=== PATIENT | male | born 1950 | race Asian ===

== ENCOUNTER 2019-09-15 05:54 | Day surgery (SDC) | payer MEDICARE ==
[~2019-09-15] VITALS: Ht 180.3 cm; Wt 94.1 kg
[~2019-09-15 05:54] MED LIST: CHOL10003 PO; ENZA40CA PO; LEUP3.75 INJ; LISI-167 PO; LISI1TAB20 PO; MULT-658 PO; SIMV20TA19 PO; zometa INJ
[2019-09-15] MEDS ORDERED: LACTATED RINGERS 1,000 ML IV SCH (06:11)
[2019-09-15 06:17] VITALS: BP 134/89
[2019-09-15] MEDS ORDERED: CHLORHEXIDINE 15 ML UDC MM ONE (06:30)
[2019-09-15 07:17] LABS: INTERNATIONAL NORMALIZED RATIO 0.92 (0.93-1.1); PROTHROMBIN TIME 9.7 Seconds (9.6-11.5)
[2019-09-15] MEDS ORDERED: MIDAZOLAM 1 MG/ML, 2ML ONE (07:45)
[2019-09-15] MEDS ORDERED: ROCURONIUM 10 MG/ML,10ML ONE (07:58)
[2019-09-15] MEDS ORDERED: SUCCINYLCHOLINE 20 MG/ML, 10ML ONE (07:58)
[2019-09-15] MEDS ORDERED: ONDANSETRON 2MG/ML, 2ML ONE (07:58)
[2019-09-15] MEDS ORDERED: PROPOFOL 10 MG/ML, 20ML ONE (07:58)
[2019-09-15] MEDS ORDERED: hydrALAzine 20 MG/ML, 1ML IV PRN (08:30)
[2019-09-15] MEDS ORDERED: PROMETHAZINE 25 MG/ML, 1ML IV PRN (08:30)
[2019-09-15] MEDS ORDERED: ONDANSETRON 2MG/ML, 2ML IVPush PRN (08:30)
[2019-09-15] MEDS ORDERED: FENTANYL PF 100 MCG/2ML IV PRN (08:30)
[2019-09-15] MEDS ORDERED: HYDROmorphone 1 MG/ML, 1ML INJ IV PRN (08:30)
[2019-09-15] MEDS ORDERED: KETOROLAC 30 MG/1 ML IV PRN (08:30)
[2019-09-15] MEDS ORDERED: DIAZEPAM 5 MG/ML, 2ML IV PRN ×2 (08:30)
[2019-09-15] MEDS ORDERED: MEPERIDINE/PF 25MG/0.5ML IVPush PRN (08:30)
[2019-09-15] MEDS ORDERED: ALBUTEROL SULFATE 2.5 MG/3 ML NPPB PRN (08:30)
[2019-09-15] MEDS ORDERED: METOCLOPRAMIDE 5 MG/ML, 2ML IV PRN (08:30)
[2019-09-15] MEDS ORDERED: LABETALOL 5MG/ML, 20ML IV PRN (08:30)
[2019-09-15] MEDS ORDERED: OXYcodone 5 MG/5 ML ORAL.SOL UDC PO PRN (08:30)
== END 2019-09-15 10:55 | disposition home or self-care (01) ==
LOC: OUT 05:54
PROVIDERS: ATTEND Internal Medicine Critical Care Medicine
DX: R91.1 Solitary pulmonary nodule (principal); R59.0 Localized enlarged lymph nodes; I10 Essential (primary) hypertension; E78.5 Hyperlipidemia, unspecified; Z79.01 Long term (current) use of anticoagulants; Z79.899 Other long term (current) drug therapy; Z87.891 Personal history of nicotine dependence; Z85.46 Personal history of malignant neoplasm of prostate; Z80.0 Family history of malignant neoplasm of digestive organs; Z82.49 Family history of ischemic heart disease and other diseases of the circulatory system
CPT/HCPCS: 31652; 36415; 71045; 85610; 85730; 88172; 88173; 88177; 88305; 88341; 88342; 93005; J0330; J2250; J2405; J2704; J7120; 31629

== ENCOUNTER 2019-09-29 06:24 | Day surgery (SDC) | payer MEDICARE ==
[2019-09-28 13:39] VITALS: BP 126/81
[~2019-09-29] VITALS: Ht 180.3 cm; Wt 94.2 kg
[2019-09-29 07:47] VITALS: BP 126/81
[2019-09-29] MEDS ORDERED: OXYcodone 5 MG/5 ML ORAL.SOL UDC PO PRN (09:00)
[2019-09-29] MEDS ORDERED: LABETALOL 5MG/ML, 20ML IV PRN (09:00)
[2019-09-29] MEDS ORDERED: FENTANYL PF 100 MCG/2ML IV PRN (09:00)
[2019-09-29] MEDS ORDERED: HYDROmorphone 2 MG/ML, 1ML IVPush PRN (09:00)
[2019-09-29] MEDS ORDERED: hydrALAzine 20 MG/ML, 1ML IV PRN (09:00)
[2019-09-29] MEDS ORDERED: ONDANSETRON 2MG/ML, 2ML IV PRN (09:00)
[2019-09-29] MEDS ORDERED: MORPHINE SULFATE 4 MG/ML, 1ML IVPush PRN (09:00)
[2019-09-29] MEDS ORDERED: MEPERIDINE/PF 25MG/ML,1ML IVPush PRN (09:00)
[2019-09-29] MEDS ORDERED: FENTANYL PF 250 MCG/5ML ONE (09:09)
[2019-09-29] MEDS ORDERED: NEOSTIGMINE 1 MG/ML, 10ML ONE (09:17)
[2019-09-29] MEDS ORDERED: CEFAZOLIN 1,000 MG ONE (09:17)
[2019-09-29] MEDS ORDERED: SUCCINYLCHOLINE 20 MG/ML, 10ML ONE (09:17)
[2019-09-29] MEDS ORDERED: PROPOFOL 10 MG/ML, 20ML ONE (09:17)
[2019-09-29] MEDS ORDERED: ROCURONIUM 10MG/ML,5ML ONE (09:17)
[2019-09-29] MEDS ORDERED: GLYCOPYRROLATE 0.2MG/1ML, 5ML ONE (09:17)
[2019-09-29] MEDS ORDERED: SUGAMMADEX 200 MG/2 ML IVPush ONE (09:18)
== END 2019-09-29 13:00 | disposition home or self-care (01) ==
LOC: OUT 06:24
PROVIDERS: ATTEND Internal Medicine Critical Care Medicine
DX: R91.1 Solitary pulmonary nodule (principal); I10 Essential (primary) hypertension; E78.5 Hyperlipidemia, unspecified; Z79.899 Other long term (current) drug therapy; Z87.891 Personal history of nicotine dependence; Z85.46 Personal history of malignant neoplasm of prostate; Z80.0 Family history of malignant neoplasm of digestive organs; Z82.49 Family history of ischemic heart disease and other diseases of the circulatory system
CPT/HCPCS: 31625; 31652; 71045; 88172; 88173; 88177; 88305; 88341; 88342; J0330; J0690; J2704; J2710; J3010; 31629

== ENCOUNTER 2019-10-25 14:58 | Outpatient (CLI) | payer MEDICARE ==
[2019-10-25 16:20] LABS: ALBUMIN 4.1 g/dL (3.4-5.0); ANION GAP 6 mmol/L (5-15); CALCIUM 9.2 mg/dL (8.5-10.1); CHLORIDE 104 mmol/L (98-107)
[2019-10-25 16:23] LABS: ALANINE AMINOTRANSFERASE 28 U/L (12-78); ALKALINE PHOSPHATASE 120 U/L (45-117); BILIRUBIN,TOTAL 0.5 mg/dL (0.2-1.0); CREATININE 1.26 mg/dL (0.7-1.3); TOTAL PROTEIN 8.1 g/dL (6.4-8.2)
== END 2019-10-25 23:59 | disposition home or self-care (01) ==
LOC: STAR 14:58
PROVIDERS: ATTEND Thoracic Surgery (Cardiothoracic Vascular Surgery)
DX: Z01.818 Encounter for other preprocedural examination (principal)
CPT/HCPCS: 36415; 80053; U0001-CS

== ENCOUNTER 2019-11-01 11:29 | Day surgery (SDC) | payer MEDICARE ==
[~2019-11-01] VITALS: Ht 180.3 cm; Wt 91.8 kg
[~2019-11-01 11:29] MED LIST changes: +BUPIVACAINE/PF-EPI 0.5% 1:200K ONE
[2019-11-01 11:57] VITALS: BP 135/88
[2019-11-01] MEDS ORDERED: LACTATED RINGERS 1,000 ML IV ONE (11:59)
[2019-11-01] MEDS ORDERED: CHLORHEXIDINE 15 ML UDC MM STA (11:59)
[2019-11-01] MEDS ORDERED: LIDOCAINE-MPF 1%, 2ML INFIL STA (11:59)
[2019-11-01] MEDS ORDERED: MICROFIBRILLAR COLLAGEN 1 GM TP ONE (13:53)
[2019-11-01] MEDS ORDERED: THROMBIN 5,000 UNIT VIAL TP ONE (13:53)
[2019-11-01] MEDS ORDERED: CEFAZOLIN 1,000 MG ONE (14:08)
[2019-11-01] MEDS ORDERED: FENTANYL PF 100 MCG/2ML ONE ×3 (14:08→14:37)
[2019-11-01] MEDS ORDERED: MIDAZOLAM 1 MG/ML, 2ML ONE (14:08)
[2019-11-01] MEDS ORDERED: EPHEDRINE 50 MG/ML, 1ML ONE (14:08)
[2019-11-01] MEDS ORDERED: SUCCINYLCHOLINE 20 MG/ML, 10ML ONE (14:08)
[2019-11-01] MEDS ORDERED: DEXAMETHASONE 4 MG/ML, 1ML ONE ×2 (14:23→15:14)
[2019-11-01] MEDS ORDERED: ROCURONIUM 10MG/ML,5ML ONE (14:45)
[2019-11-01] MEDS ORDERED: HYDROmorphone 1 MG/ML, 1ML INJ IVPush PRN (15:00)
[2019-11-01] MEDS ORDERED: ONDANSETRON 2MG/ML, 2ML IVPush PRN ×2 (15:00→15:30)
[2019-11-01] MEDS ORDERED: DIPHENHYDRAMINE 50 MG/ML, 1ML IVPush PRN (15:00)
[2019-11-01] MEDS ORDERED: MIDAZOLAM 1 MG/ML, 2ML IV PRN (15:00)
[2019-11-01] MEDS ORDERED: MEPERIDINE/PF 25MG/0.5ML IVPush PRN (15:00)
[2019-11-01] MEDS ORDERED: EPHEDRINE 50 MG/ML, 1ML IVPush PRN (15:00)
[2019-11-01] MEDS ORDERED: PROMETHAZINE 12.5 MG SUPP PR PRN (15:00)
[2019-11-01] MEDS ORDERED: LABETALOL 5MG/ML, 20ML IV PRN (15:00)
[2019-11-01] MEDS ORDERED: OXYcodone 5 MG/5 ML ORAL.SOL UDC PO PRN (15:00)
[2019-11-01] MEDS ORDERED: PROMETHAZINE 25 MG/ML, 1ML IVPush PRN (15:00)
[2019-11-01] MEDS ORDERED: ALBUTEROL SULFATE 2.5 MG/3 ML NPPB PRN (15:00)
[2019-11-01] MEDS ORDERED: hydrALAzine 20 MG/ML, 1ML IV PRN (15:00)
[2019-11-01] MEDS ORDERED: FENTANYL PF 100 MCG/2ML IV PRN (15:00)
[2019-11-01] MEDS ORDERED: DIAZEPAM 5 MG/ML, 2ML IVPush PRN (15:00)
[2019-11-01] MEDS ORDERED: ACETAMINOPHEN 325 MG TABLET PO PRN (15:00)
[2019-11-01] MEDS ORDERED: ONDANSETRON 2MG/ML, 2ML ONE ×2 (15:14)
[2019-11-01] MEDS ORDERED: SUGAMMADEX 200 MG/2 ML IVPush ONE (15:14)
[2019-11-01] MEDS ORDERED: LACTATED RINGERS 1,000 ML IV SCH (15:29)
[2019-11-01] MEDS ORDERED: HYDROcodone/APAP 5/325 TABLET PO PRN (15:30)
[2019-11-01] MEDS ORDERED: morphine SULFATE 10 MG/ML, 1ML IVPush PRN (15:30)
== END 2019-11-01 17:30 | disposition home or self-care (01) ==
LOC: OUT 11:29
PROVIDERS: ATTEND Thoracic Surgery (Cardiothoracic Vascular Surgery)
DX: R91.8 Other nonspecific abnormal finding of lung field (principal); R59.0 Localized enlarged lymph nodes; C77.1 Secondary and unspecified malignant neoplasm of intrathoracic lymph nodes; I10 Essential (primary) hypertension; E78.5 Hyperlipidemia, unspecified; Z79.899 Other long term (current) drug therapy; Z85.46 Personal history of malignant neoplasm of prostate; Z87.891 Personal history of nicotine dependence; Z80.0 Family history of malignant neoplasm of digestive organs; Z82.49 Family history of ischemic heart disease and other diseases of the circulatory system
CPT/HCPCS: 39402; 88305; 88341; 88342; C1729; J0330; J0690; J1100; J2250; J2405; J3010; J7120

== ENCOUNTER → 2019-12-14 | Outpatient (CLI) | payer MEDICARE ==
[~2019-12-14] MED LIST changes: -BUPIVACAINE/PF-EPI 0.5% 1:200K ONE
== END | disposition home or self-care (01) ==
LOC: STAR 08:14
PROVIDERS: ATTEND Internal Medicine Hematology & Oncology
DX: Z01.818 Encounter for other preprocedural examination (principal); C61 Malignant neoplasm of prostate; C79.51 Secondary malignant neoplasm of bone; C34.11 Malignant neoplasm of upper lobe, right bronchus or lung; I10 Essential (primary) hypertension; Z79.899 Other long term (current) drug therapy
CPT/HCPCS: 93005

== ENCOUNTER 2021-01-31 09:08 | Day surgery (SDC) | payer MEDICARE ==
[~2021-01-31] VITALS: Ht 180.3 cm; Wt 83.2 kg
[2021-01-31] MEDS ORDERED: SODIUM CHLORIDE 0.9% 1,000 ML IV SCH (10:00)
[2021-01-31 10:08] VITALS: BP 111/63
[2021-01-31] MEDS ORDERED: MIDAZOLAM 1 MG/ML, 5ML ONE (10:33)
[2021-01-31] MEDS ORDERED: FLUMAZENIL 0.1 MG/1 ML, 5ML ONE (10:33)
[2021-01-31] MEDS ORDERED: FENTANYL PF 100 MCG/2ML ONE (10:33)
[2021-01-31] MEDS ORDERED: NALOXONE 1 MG/ML, 2ML ONE (10:34)
== END 2021-01-31 11:45 | disposition home or self-care (01) ==
LOC: OUT 09:08
PROVIDERS: ATTEND Internal Medicine Hematology & Oncology
DX: C79.51 Secondary malignant neoplasm of bone (principal); C61 Malignant neoplasm of prostate; C34.11 Malignant neoplasm of upper lobe, right bronchus or lung; I10 Essential (primary) hypertension; E78.5 Hyperlipidemia, unspecified; Z79.899 Other long term (current) drug therapy; Z87.891 Personal history of nicotine dependence; Z72.89 Other problems related to lifestyle; Z98.890 Other specified postprocedural states
CPT/HCPCS: 20220; 77012; 88307; 88311; 88341; 88342; 99156; 99157; J2250; J3010; J7030; 20225; J2310